=== PATIENT | female | born 1965 | race Caucasian/White ===

== ENCOUNTER 2024-04-19 13:56 | Inpatient (IN) | payer OTHER, SELFPAY ==
[2024-04-19 14:38] LABS: Absolute Basophils 0.1 K/uL (0-0.5); Absolute Eosinophils 0.2 K/uL (0-0.5); Absolute Lymphocytes (CBC) 2.8 K/uL (0.7-4.9); Absolute Monocytes 0.6 K/uL (0.1-1.3); Absolute Neutrophil 4.6 K/uL (1.8-8.0); Basophils % 1.3 % (0-1.3); Eosinophils % 2.2 % (0-4.4); Hematocrit 44.2 % (36.0-45.0); Hemoglobin 14.4 g/dL (12.0-15.0); Lymphocytes % 33.8 % (15.3-44.8); MCH 28.8 pg (27.0-35.0); MCHC 32.6 g/dL (32.0-36.0); MCV 88.1 fL (80-100); MPV 8.8 fL (7.6-11.3); Monocytes % 7.4 % (3.3-12.3); Neutrophils % 55.3 % (41.7-73.7); Platelets 318 thou/uL (152-406); RBC Red Blood Cell Count 5.01 M/uL (3.86-4.86)
[2024-04-19 14:46] LABS: D-Dimer 0.297 FEUug/mL (0-0.500); Protime INR 1.07
--- NOTE | 2024-04-19 14:50 | RAD REPORT ---
EXAM: CT brain without contrast HISTORY: STROKE ALERT COMPARISON: None TECHNIQUE: Multiple contiguous axial images were obtained and a CT of the brain without contrast. Sag ittal and coronal reformats were performed. One or more of the following dose reduction techniques were used: Automated exposure control, adjust ment of the mA and/or kV according to patient size, and/or iterative reconstruction. FINDINGS: No evidence of hydrocephalus, intracranial hemorrhage, or extra-axial fluid collection. The brain is normal in morphology. No evidence of midline shift or areas of brain edema. The calvarium is intact. The visualized paranasal sinuses and mastoid air cells are essentially clear . IMPRESSION: No evidence of acute intracranial abnormality. If there is persistent clinical concern for CVA, MR examination is recommended for further characteri zation. The findings were communicated with Tc Duenas MD at 04/19/2024 2:45 PM by messaging.
--- NOTE | 2024-04-19 14:52 | RAD REPORT ---
EXAMINATION: CTA HEAD CLINICAL INDICATION: SLURRED SPEECH TECHNIQUE: Axial CT images were obtained through the head after intravenous contrast utilizing angio raph protocol with 3D post-processing (maximum intensity projection images, volume rendered images and/or shaded surface rendered images). One or more of the following dose reduction technique s were used: Automated exposure control, adjustment of the mA and/or kV according to patient size, and/or iterative reconstruction. Unless otherwise specified, incidental findings do not require dedic ated imaging follow-up. COMPARISON: No prior exam. FINDINGS: ICA: The petrous, cavernous, and supraclinoid segments of the bilateral internal carotid arteries are normal. The ophthalmic artery origins are visualized and normal. The posterior communicating arteries are patent. RICHA: Anterior cerebral arteries are normal bilaterally. The anterior communicating artery is patent. MCA: Middle cerebral arteries are normal bilaterally. OLD COIN DEALER: Posterior cerebral arteries are normal bilaterally. Vertebrobasilar: The vertebral arteries are patent. The basilar artery is normal in appearance. 3D images confirm these findings. IMPRESSION: No significant flow abnormality is identified.
--- NOTE | 2024-04-19 14:58 | RAD REPORT ---
EXAMINATION: CTA NECK CLINICAL INDICATION: PAIN TECHNIQUE: Axial CT images were obtained from the aortic arch to the skull base after intravenous con trast utilizing angiographic protocol with 3D post-processing (maximum intensity projection images, volume rendered images and/or shaded surface rendered images). One or more of the following dose redu ction techniques were used: Automated exposure control, adjustment of the mA and/or kV according to patient size, and/or iterative reconstruction. Unless otherwise specified, incidental findings do not require dedicated imaging follow-up. COMPARISON: No prior exam. FINDINGS: AORTA: The imaged aortic arch is normal. CCA: The common carotid arteries are patent and normal in caliber. ICA/ECA: There is mild soft plaque present proximal left ICA distal to the bulb resulting in narrowin g estimated at 50-60%. VERTEBRAL: The cervical vertebral arteries are patent. The vertebral arteries are codominant. SOFT TISSUE: No significant neck soft tissue abnormalities. The visualized lung apices are clear. 3D images confirm these findings. IMPRESSION: Mild to moderate narrowing of the post bulbar proximal left ICA caused by soft plaque. NASCET criteria used. Mild 0-49% stenosis Moderate 50-69% stenosis Severe 70-99% stenosis
[2024-04-19] MEDS ORDERED: NA CHLORIDE 0.9% 1,000 ML ONE (15:10)
[2024-04-19] MEDS ORDERED: FOLIC ACID 5 MG/ML VIAL ONE (15:10)
[2024-04-19] MEDS ORDERED: ASPIRIN 81 MG CHEWABLE TABLET ONE (15:27)
[2024-04-19] MEDS ORDERED: ATORVASTATIN 40 MG TAB ONE (15:27)
[2024-04-19] MEDS ORDERED: CLOPIDOGREL 75 MG TABLET ONE (15:27)
--- NOTE | 2024-04-19 15:27 | ER ---
Nurse's Notes [facility] Name: Nu Kurtz Age: 58 yrs Sex: Female : 1965 Arrival Date: 04/19/2024 Time: 13:56 Bed 6 Private MD: Diagnosis: Cerebral infarction, [id number]-4-0 days;Aphasia following cerebral infarction-righjt side wekness;COPD/ Chronic obstructive pulmonary disease, unspecified;Essential (primary) hypertension;Tobacco abuse counseling;Tobacco use;Occlusion and stenosis of left carotid artery-INTERNAL, MODERATE Presentation: 04/19 13:58 Chief complaint: Patient states: Right sided weakness and slurred speech x 2 days. 7 14:01 Coronavirus screen: At this time, the client does not indicate any symptoms associated jl with coronavirus-19. Ebola Screen: No symptoms or risks identified at this time. An acute neurological deficit is present. The charge nurse has been notified. The patient has been moved to a treatment area. Pre-hospital glucose is not applicable to this patient. Initial Sepsis Screen: Does the patient meet any 2 criteria? No. Patient's initial sepsis screen is negative. Does the patient have a suspected source of infection? No. Patient's initial sepsis screen is negative. Risk Assessment: Do you want to hurt yourself or someone else? Patient reports no desire to harm self or others. Onset of symptoms was April 17, 2024. Care prior to arrival: None. 14:01 Method Of Arrival: Wheelchair [facility] 14:01 Acuity: ENMANUEL 3 jl7 Triage Assessment: 13:58 The onset of the patients symptoms was March 31, 2024 at 12:00. General: Appears in jl7 no apparent distress. uncomfortable, unkempt, well developed, Behavior is calm, cooperative. Pain: Denies pain. Neuro: Level of Consciousness is awake, alert, obeys commands, Oriented to person, place, time, situation, Sinter Feeder are weak bilaterally Moves all extremities. Gait is unsteady, reports history of right foot surgery. Reports slurred speech. Cardiovascular: Patient's skin is warm and dry. Respiratory: Airway is patent Respiratory effort is even, unlabored, Respiratory pattern is regular, symmetrical. Derm: Skin is pink, warm \T\ dry. Stroke Activation: Symptom onset > 6 hours Physician: ED Attending; Name: Henrique; Notified At: ; Arrived At: Physician: Mid-Level Provider; Name: ; Notified At: ; Arrived At: Physician: [not used]; Name: ; Notified At: ; Arrived At: Physician: [not used]; Name: ; Notified At: ; Arrived At: Physician: [not used]; Name: ; Notified At: ; Arrived At: Historical: - Allergies: 14:31 No Known Allergies; jl7 - Home Meds: 14:31 None [Active]; jl7 - PMHx: 14:31 None; jl7 - Immunization history:: Adult Immunizations up to date. - Infectious Disease History:: Denies. - Social history:: Smoking status: Patient reports the use of cigarette tobacco products, smokes two packs cigarettes per day. Screenin:58 [facility] ED Fall Risk Assessment (Adult) History of falling in the last 3 months, jl7 including since admission No falls in past 3 months (0 pts) Confusion or Disorientation No (0 pts) Intoxicated or Sedated No (0 pts) Impaired Gait No (0 pts) Mobility Assist Device Used No (0 pt) Altered Elimination No (0 pt) Score/Fall Risk Level 0 - 2 = Low Risk Oriented to surroundings, Maintained a safe environment. Abuse screen: Denies threats or abuse. Denies injuries from another. Nutritional screening: No deficits noted. Tuberculosis screening: No symptoms or risk factors identified. Assessment: 13:58 VAN Scoring: Arm Drift: Patients demonstrates NO arm weakness. Patient is VAN Negative. [facility] [place] Swallow Protocol Exclusion Criteria: Exclusion Criteria Result: Proceed Brief Cognitive Screen What is your name? Normal, Where are you right now? Normal, What year is it? Normal. Oral Mechanism Examination Facial Symmetry: Normal, Motion: Normal, Lip Closure: Normal, Oral Mechanism Result: Normal. 3 oz Water Swallow Challenge: Pt able to drink all water without stopping, coughing, choking or throat clearing: Yes Result: ANDREEA LR Notified: Tc Duenas MD. TNKase (Tenecteplase) Screening: Contraindications: Patient reports onset of signs and symptoms of stroke greater than 6 hours ago: Yes. 13:58 General: See triage. [facility] 15:00 Reassessment: Patient appears in no apparent distress at this time. No changes from jl7 previously documented assessment. Patient and/or family updated on plan of care and expected duration. Pain level reassessed. Patient is alert, oriented x 3, equal unlabored respirations, skin warm/dry/pink. 16:00 Reassessment: Patient appears in no apparent distress at this time. No changes from 7 previously documented assessment. Patient and/or family updated on plan of care and expected duration. Pain level reassessed. Patient is alert, oriented x 3, equal unlabored respirations, skin warm/dry/pink. 17:00 Reassessment: Patient appears in no apparent distress at this time. No changes from 7 previously documented assessment. Patient and/or family updated on plan of care and expected duration. Pain level reassessed. Patient is alert, oriented x 3, equal unlabored respirations, skin warm/dry/pink. 20:18 General: Appears in no apparent distress. comfortable, Behavior is calm, cooperative, mt4 appropriate for age. 20:19 Pain: Denies pain. Neuro: Level of Consciousness is awake, alert, obeys commands, mt4 Oriented to person, place, time, situation, Sinter Feeder are weak on right Weakness Speech is normal, Facial symmetry appears normal. Cardiovascular: Reports Denies chest pain. Respiratory: Airway is patent Respiratory effort is even, unlabored, Respiratory pattern is regular, symmetrical. Vital Signs: 14:01 BP 187 / 98; Pulse 68; Resp 15; Temp 97.9; Pulse Ox 95% ; jl7 17:21 BP 160 / 79; Pulse 73; Resp 15; Pulse Ox 100% ; jl7 18:07 Weight 102.06 kg; Height 5 ft. 5 in. ; jl7 20:11 BP 152 / 62; Pulse 68; Resp 16; Temp 98.4(O); Pulse Ox 99% on R/A; mt4 21:09 BP 140 / 61; Pulse 68; Resp 17; Pulse Ox 98% on R/A; Pain 0/10; mt4 18:07 Body Mass Index 37.44 (102.06 kg, 165.1 cm) 7 21:09 Pain Scale: Adult mt4 [place] Coma Score: 14:20 Eye Response: spontaneous(4). Motor Response: obeys commands(6). Verbal Response: sandro oriented(5). Total: 15. 21:11 Eye Response: spontaneous(4). Motor Response: obeys commands(6). Verbal Response: mt4 oriented(5). Total: 15. NIH Stroke Scale Scores: 13:58 NIHSS Score: 1 jl7 14:20 NIHSS Score: 6 [facility] ED Course: 13:57 Patient arrived in ED. mr 13:58 Tc Duenas MD is Attending Physician. [facility] 13:58 Patient has correct armband on for positive identification. Placed in gown. Bed in low jl7 position. Call light in reach. Side rails up X2. Provided Education on: use of call traore. Client placed on continuous cardiac and pulse oximetry monitoring. NIBP monitoring applied. Warm blanket given. 14:20 Initial lab(s) drawn, by sd, sent to lab. Inserted saline lock: 20 gauge in left jl7 forearm, using aseptic technique. Blood collected. Flushed with 10 mL NS. 14:27 Quyen Guaman, RN is Primary Nurse. jl7 14:31 Triage completed. jl7 14:31 Arm band placed on right wrist. jl7 14:41 CT Stroke Brain w/o Contrast In Process Unspecified. EDMS 14:41 CT Head Angio In Process Unspecified. EDMS 14:41 CT Neck Angio In Process Unspecified. EDMS 15:11 XRAY Chest (1 view) In Process Unspecified. EDMS 15:24 Zachariah Patterson is Hospitalizing Provider. sandro 16:46 No provider procedures requiring assistance completed. Patient admitted, IV remains in jl7 place. intact, No redness/swelling at site. 19:11 Primary Nurse role handed off by Quyen Guaman RN jl7 19:28 GRICEL SALINAS, RN is Primary Nurse. dd2 21:11 No apparent distress. Resting quietly. mt4 21:11 Client placed on continuous cardiac and pulse oximetry monitoring. NIBP monitoring mt4 applied. Lights dimmed. Warm blanket given. Pillow given. Verbal reassurance given. Assisted to bathroom. 21:11 Patient admitted, IV remains in place. Patient maintains SpO2 saturation greater than mt4 95% on room air. Administered Medications: 15:18 Drug: foLIC Acid IVPB 1 mg IVPB once Route: IVPB; Site: left wrist; ss 15:19 Follow up: Response: No adverse reaction; IV Status: Completed infusion jl7 15:19 Drug: NS 0.9% IV 1000 ml IV at 1000 ml once; to be given as a bolus over 60 minutes ss Route: IV; Rate: 1000 ml; Site: left wrist; 16:20 Follow up: Response: No adverse reaction; IV Status: Completed infusion; IV Intake: jl7 1000ml 15:32 Drug: Atorvastatin PO 40 mg PO once Route: PO; bp 17:23 Follow up: Response: No adverse reaction jl7 15:32 Drug: Aspirin PO Chewable Tablet 324 mg PO once; 81 mg tablets x 4 Route: PO; bp 17:23 Follow up: Response: No adverse reaction jl7 15:32 Drug: Clopidogrel PO 75 mg PO once Route: PO; bp 17:23 Follow up: Response: No adverse reaction jl7 15:32 Drug: Famotidine IVP 20 mg IVP once; dilute with 10 mL 0.9% NaCl; give over 2 minutes bp Route: IVP; Site: left hand; 17:23 Follow up: Response: No adverse reaction jl7 Medication: 13:58 VIS not applicable for this client. jl7 Point of Care Testin:58 NA jl7 Ranges: Intake: 16:20 IV: 1000ml; Total: 1000ml. jl7 Outcome: 15:26 Decision to Hospitalize by Provider. sandro 21:11 Admitted to Med/surg mt4 21:11 Admitted to Med/surg accompanied by tech, via stretcher, room 206, 21:11 Condition: stable 21:11 Instructed on the need for admit, 21:14 Patient left the ED. mt4 NIH Stroke Scale - NIH Stroke Score Date: 04/19/2024 Time: 13:58 Total Score = 1 10. Dysarthria (speech clarity - read or repeat words) - 1(Mild to Moderate) 11. Extinction and Inattention (visual/tactile/auditory/spatial/personal) - 0(No abnormality) 1a. Level of Consciousness (LOC) - 0(Alert) 1b. Level of Consciousness (LOC) (Month \T\ Age) - 0(Both) 1c. LOC Commands (Open \T\ Closes Eyes/Trimming Department Blocker) - 0(Both) 2. Best Gaze (Lateral Gaze Paresis) - 0(Normal) 3. Visual Field Loss - 0(No visual loss) 4. Facial Palsy - 0(Normal) 5a. Left Arm: Motor (10-second hold) - 0(No drift) 5b. Right Arm: Motor (10-second hold) - 0(No drift) 6a. Left Leg: Motor (5-second hold - always test supine) - 0(No drift) 6b. Right Leg: Motor (5-second hold - always test supine) - 0(No drift) 7. Limb Ataxia (finger/nose \T\ heel/camacho - test with eyes open) - 0(Absent) 8. Sensory Loss (pinprick arms/legs/face) - 0(Normal) 9. Best Language: Aphasia (description/naming/reading) - 0(No aphasia) Initials: amrit NIH Stroke Scale - NIH Stroke Score Date: 04/19/2024 Time: 14:20 Total Score = 6 10. Dysarthria (speech clarity - read or repeat words) - 1(Mild to Moderate) 11. Extinction and Inattention (visual/tactile/auditory/spatial/personal) - 0(No abnormality) 1a. Level of Consciousness (LOC) - 0(Alert) 1b. Level of Consciousness (LOC) (Month \T\ Age) - 0(Both) 1c. LOC Commands (Open \T\ Closes Eyes/Trimming Department Blocker) - 0(Both) 2. Best Gaze (Lateral Gaze Paresis) - 0(Normal) 3. Visual Field Loss - 0(No visual loss) 4. Facial Palsy - 0(Normal) 5a. Left Arm: Motor (10-second hold) - 0(No drift) 5b. Right Arm: Motor (10-second hold) - 1(Drift) 6a. Left Leg: Motor (5-second hold - always test supine) - 0(No drift) 6b. Right Leg: Motor (5-second hold - always test supine) - 1(Drift) 7. Limb Ataxia (finger/nose \T\ heel/camacho - test with eyes open) - 2(Present in two limbs) 8. Sensory Loss (pinprick arms/legs/face) - 0(Normal) 9. Best Language: Aphasia (description/naming/reading) - 1(Mild to moderate aphasia) Initials: sandro Signatures: Dispatcher [employer] Tc Contreras MD MD cha Rivera, Caitlin, Reg Reg mr MelgarIsatu, RN RN Quyen Polk, TRAM RN jl7 Brett Farias, Ray Bazzi RN, RN TRAM mt4 GRICEL SALINAS RN RN dd2 Corrections: (The following items were deleted from the chart) 14:32 14:31 PSHx: None; jl7 jl7
--- NOTE | 2024-04-19 15:27 | EDPHYS ---
Physician Documentation [facility] Name: Nu Kurtz Age: 58 yrs Sex: Female : 1965 Arrival Date: 04/19/2024 Time: 13:56 Bed 6 Private MD: ED Physician Tc Duenas HPI: 04/19 14:14 This 58 yrs old Female presents to ER via Unassigned with complaints of sandro Slurred Speech. 14:14 The patient presents to the emergency department with weakness of the right upper sandro extremity, right lower extremity, a speech or higher order brain function problem, aphasia, that is moderate. Onset: The symptoms/episode began/occurred 2 day(s) ago. Context: occurred at an unknown location, occurred while the patient was gradual x 2 days. Associated signs and symptoms: Pertinent positives: dizziness. Severity of symptoms: At their worst the symptoms were moderate in the emergency department the symptoms are unchanged. Patient's baseline: Neuro: alert and fully oriented. Current symptoms: dysphasia, paralysis or paresis, of the right arm and right leg, that is mild. The patient has not experienced similar symptoms in the past. Historical: - Allergies: 14:31 No Known Allergies; jl7 - Home Meds: 14:31 None [Active]; jl7 - PMHx: 14:31 None; jl7 - Immunization history:: Adult Immunizations up to date. - Infectious Disease History:: Denies. - Social history:: Smoking status: Patient reports the use of cigarette tobacco products, smokes two packs cigarettes per day. ROS: 14:14 Constitutional: Negative for fever, chills, and weight loss, Eyes: Negative for injury, sandro pain, redness, and discharge, ENT: Negative for injury, pain, and discharge, Neck: Negative for injury, pain, and swelling, Cardiovascular: Negative for chest pain, palpitations, and edema, Abdomen/GI: Negative for abdominal pain, nausea, vomiting, diarrhea, and constipation, Back: Negative for injury and pain, : Negative for injury, bleeding, discharge, and swelling, MS/Extremity: Negative for injury and deformity, Skin: Negative for injury, rash, and discoloration, Psych: Negative for depression, anxiety, suicide ideation, homicidal ideation, and hallucinations, Allergy/Immunology: Negative for hives, rash, and allergies, Endocrine: Negative for neck swelling, polydipsia, polyuria, polyphagia, and marked weight changes, Hematologic/Lymphatic: Negative for swollen nodes, abnormal bleeding, and unusual bruising, 14:14 Respiratory: Positive for cough, "sounds productive", shortness of breath, on exertion. 14:14 Neuro: Positive for dizziness, speech changes, weakness, of the right arm and right leg, Exam: 14:14 Constitutional: This is a well developed, well nourished patient who is awake, alert, sandro and in no acute distress. Head/Face: Normocephalic, atraumatic. Eyes: Pupils equal round and reactive to light, extra-ocular motions intact. Lids and lashes normal. Conjunctiva and sclera are non-icteric and not injected. Cornea within normal limits. Periorbital areas with no swelling, redness, or edema. ENT: Nares patent. No nasal discharge, no septal abnormalities noted. Tympanic membranes are normal and external auditory canals are clear. Oropharynx with no redness, swelling, or masses, exudates, or evidence of obstruction, uvula midline. Mucous membranes moist. Neck: Trachea midline, no thyromegaly or masses palpated, and no cervical lymphadenopathy. Supple, full range of motion without nuchal rigidity, or vertebral point tenderness. No Meningismus. Chest/axilla: Normal chest wall appearance and motion. Nontender with no deformity. No lesions are appreciated. Cardiovascular: Regular rate and rhythm with a normal S1 and S2. No gallops, murmurs, or rubs. Normal PMI, no JVD. No pulse deficits. Abdomen/GI: Soft, non-tender, with normal bowel sounds. No distension or tympany. No guarding or rebound. No evidence of tenderness throughout. Back: No spinal tenderness. No costovertebral tenderness. Full range of motion. Female : Normal external genitalia. Skin: Warm, dry with normal turgor. Normal color with no rashes, no lesions, and no evidence of cellulitis. Psych: Awake, alert, with orientation to person, place and time. Behavior, mood, and affect are within normal limits. 14:14 Respiratory: the patient does not display signs of respiratory distress, Respirations: normal, no acute changes, is not noted, Breath sounds: bronchial sounds, that are mild, are scattered, decreased breath sounds, that are mild, are located in both bases, rhonchi, that are mild, are scattered, stridor, that is mild, + upper airway congestion. wheezing: inspiratory expiratory 14:14 Musculoskeletal/extremity: ROM: limited active range of motion, in the right arm and right leg, Circulation is intact in all extremities. Sensation intact. Compartment Syndrome exam of affected extremity: is normal. Weight bearing: able to fully bear weight, DVT Exam: No signs of deep vein thrombosis. no pain, no swelling, no tenderness, negative Homans' sign noted on exam, no appreciated bluish discoloration, no erythema, no increased warmth, 15:37 ECG was reviewed by the Attending Physician. [facility] Vital Signs: 14:01 BP 187 / 98; Pulse 68; Resp 15; Temp 97.9; Pulse Ox 95% ; 7 17:21 BP 160 / 79; Pulse 73; Resp 15; Pulse Ox 100% ; 7 18:07 Weight 102.06 kg; Height 5 ft. 5 in. ; 7 20:11 BP 152 / 62; Pulse 68; Resp 16; Temp 98.4(O); Pulse Ox 99% on R/A; mt4 21:09 BP 140 / 61; Pulse 68; Resp 17; Pulse Ox 98% on R/A; Pain 0/10; mt4 18:07 Body Mass Index 37.44 (102.06 kg, 165.1 cm) 7 21:09 Pain Scale: Adult mt4 NIH Stroke Scale Scores: 13:58 NIHSS Score: 1 jl7 14:20 NIHSS Score: 6 [facility] [place] Coma Score: 14:20 Eye Response: spontaneous(4). Motor Response: obeys commands(6). Verbal Response: [facility] oriented(5). Total: 15. 21:11 Eye Response: spontaneous(4). Motor Response: obeys commands(6). Verbal Response: mt4 oriented(5). Total: 15. MDM: 13:58 Medical Screening Exam initiated [facility] 14:22 Data reviewed: vital signs, nurses notes, lab test result(s), EKG, radiologic studies, [facility] CT scan, plain films. Consideration of Admission/Observation Patient was admitted/placed on observation. Escalation of care including admission/observation considered. I considered the following discharge prescriptions or medication management in the emergency department Medications were administered in the Emergency Department. See MAR. Independent interpretation of the following test(s) in the Emergency Department EKG: See my EKG interpretation above. Test considered but Not performed: MRI: no mri available. 04/19 14:00 Order name: Basic Metabolic Panel; Complete Time: 17:26 [facility] 04/19 14:00 Order name: CBC with Diff; Complete Time: 15:17 [facility] 04/19 14:00 Order name: D-Dimer; Complete Time: 15:17 [facility] 04/19 14:00 Order name: LFT's; Complete Time: 17:26 [facility] 04/19 14:00 Order name: NT PRO-BNP; Complete Time: 17:26 [facility] 04/19 14:00 Order name: PT-INR; Complete Time: 15:17 [facility] 04/19 14:00 Order name: Troponin HS; Complete Time: 17:26 [facility] 04/19 14:01 Order name: Urinalysis w/ reflexes [facility] 04/19 15:18 Order name: Lipid Profile [facility] 04/19 16:35 Order name: RPR EDMS 04/19 16:35 Order name: Urine Drug Screen EDVT 04/19 16:35 Order name: Vitamin B12 Level EDMS 04/19 16:35 Order name: Vitamin D, 25 (OH), TOTAL EDVT 04/19 16:35 Order name: Basic Metabolic Panel EDMS 04/19 16:35 Order name: Basic Metabolic Panel EDMS 04/19 16:35 Order name: Basic Metabolic Panel EDMS 04/19 16:35 Order name: Basic Metabolic Panel EDMS 04/19 16:35 Order name: Basic Metabolic Panel EDMS 04/19 16:35 Order name: Basic Metabolic Panel EDMS 04/19 16:35 Order name: CBC with Automated Diff EDMS 04/19 16:35 Order name: CBC with Automated Diff EDMS 04/19 16:35 Order name: CBC with Automated Diff EDMS 04/19 16:35 Order name: CBC with Automated Diff EDMS 04/19 16:35 Order name: CBC with Automated Diff EDMS 04/19 16:35 Order name: CBC with Automated Diff EDMS 04/19 16:35 Order name: Magnesium EDMS 04/19 16:35 Order name: Magnesium EDMS 04/19 16:35 Order name: Magnesium EDMS 04/19 16:35 Order name: Magnesium EDMS 04/19 16:35 Order name: Magnesium EDMS 04/19 16:35 Order name: Magnesium EDMS 04/19 16:35 Order name: Phosphorus EDMS 04/19 16:35 Order name: Phosphorus EDMS 04/19 16:35 Order name: Phosphorus EDMS 04/19 16:35 Order name: Phosphorus EDMS 04/19 16:35 Order name: Phosphorus EDMS 04/19 16:35 Order name: Phosphorus EDMS 04/19 16:35 Order name: T4,Total EDMS 04/19 16:35 Order name: T4,Total EDMS 04/19 16:35 Order name: Thyroid Stimulating Hormone EDMS 04/19 16:35 Order name: Thyroid Stimulating Hormone EDMS 04/19 16:35 Order name: Anti-Thrombin III Activity EDMS 04/19 16:35 Order name: C-ANCA Anti-Proteinase 3 EDMS 04/19 16:35 Order name: Cardiolipin Antibodies G,M EDMS 04/19 16:35 Order name: Factor V Leiden Mutation EDMS 04/19 16:35 Order name: Homocysteine EDMS 04/19 16:35 Order name: Miscellaneous Test Lab EDMS 04/19 16:35 Order name: P-ANCA Anti-Myeloperoxidase Ab EDMS 04/19 16:35 Order name: Protein C Antigen EDMS 04/19 16:35 Order name: Protein S (Total EDMS 04/19 16:35 Order name: PROTHROMBIN GENE ANALYSIS (F2) EDMS 04/19 16:35 Order name: Protein Electo w/M Rg Serum EDMS 04/19 14:00 Order name: XRAY Chest (1 view); Complete Time: 17:26 [facility] 04/19 14:00 Order name: CT Stroke Brain w/o Contrast; Complete Time: 15:17 [facility] 04/19 14:01 Order name: CT Head Angio; Complete Time: 15:17 [facility] 04/19 14:01 Order name: CT Neck Angio; Complete Time: 15:17 [facility] 04/19 16:35 Order name: Echo with Doppler EDMS 04/19 16:35 Order name: Stroke Protocol EDMS 04/19 14:00 Order name: EKG; Complete Time: 14:01 [facility] 04/19 16:35 Order name: Physical Therapy Consult EDMS 04/19 16:35 Order name: Speech Therapy Consult EDMS 04/19 14:00 Order name: Cardiac monitoring; Complete Time: 14:34 [facility] 04/19 14:00 Order name: EKG - Nurse/Tech; Complete Time: 15:22 [facility] 04/19 14:00 Order name: IV Saline Lock; Complete Time: 14:34 [facility] 04/19 14:00 Order name: Labs collected and sent; Complete Time: 14:34 [facility] 04/19 14:00 Order name: O2 Per Protocol; Complete Time: 14:34 [facility] 04/19 14:00 Order name: O2 Sat Monitoring; Complete Time: 14:34 [facility] EC:37 Rate is 61 beats/min. Rhythm is regular. QRS Britt is Normal. VT interval is normal. QRS sandro interval is normal. QT interval is normal. No Q waves. T waves are Normal. No ST changes noted. Clinical impression: Normal ECG and No evidence of ischemia. Interpreted by me. Reviewed by me. Administered Medications: 15:18 Drug: foLIC Acid IVPB 1 mg IVPB once Route: IVPB; Site: left wrist; ss 15:19 Follow up: Response: No adverse reaction; IV Status: Completed infusion jl7 15:19 Drug: NS 0.9% IV 1000 ml IV at 1000 ml once; to be given as a bolus over 60 minutes ss Route: IV; Rate: 1000 ml; Site: left wrist; 16:20 Follow up: Response: No adverse reaction; IV Status: Completed infusion; IV Intake: jl7 1000ml 15:32 Drug: Atorvastatin PO 40 mg PO once Route: PO; bp 17:23 Follow up: Response: No adverse reaction jl7 15:32 Drug: Aspirin PO Chewable Tablet 324 mg PO once; 81 mg tablets x 4 Route: PO; bp 17:23 Follow up: Response: No adverse reaction jl7 15:32 Drug: Clopidogrel PO 75 mg PO once Route: PO; bp 17:23 Follow up: Response: No adverse reaction jl7 15:32 Drug: Famotidine IVP 20 mg IVP once; dilute with 10 mL 0.9% NaCl; give over 2 minutes bp Route: IVP; Site: left hand; 17:23 Follow up: Response: No adverse reaction jl7 Point of Care Testin:58 NA jl7 Ranges: Critical Glucose Levels:Adult <50 mg/dl or >400 mg/dl <40 mg/dl or >180 mg/dl Disposition Summary: 04/19/24 15:26 Hospitalization Ordered Notes: Hospitalization Status: Inpatient Admission sandro Provider: Zachariah Patterson cha Condition: Fair sandro Problem: new sandro Symptoms: have improved sandro Bed/Room Type: Standard sandro Location: Telemetry/MedSurg (Inpatient)(04/19/24 19:24) vk Room Assignment: 209(04/19/24 19:25) vk Diagnosis - Cerebral infarction, unspecified - 2-3 days sandro - Aphasia following cerebral infarction - righjt side wekness sandro - COPD/ Chronic obstructive pulmonary disease, unspecified sandro - Essential (primary) hypertension sandro - Tobacco abuse counseling sandro - Tobacco use sandro - Occlusion and stenosis of left carotid artery - INTERNAL, MODERATE sandro Forms: - Medication Reconciliation Form sandro - SBAR form sandro - Leadership Thank You Letter sandro NIH Stroke Scale - NIH Stroke Score Date: 04/19/2024 Time: 13:58 Total Score = 1 10. Dysarthria (speech clarity - read or repeat words) - 1(Mild to Moderate) 11. Extinction and Inattention (visual/tactile/auditory/spatial/personal) - 0(No abnormality) 1a. Level of Consciousness (LOC) - 0(Alert) 1b. Level of Consciousness (LOC) (Month \\T\\ Age) - 0(Both) 1c. LOC Commands (Open \\T\\ Closes Eyes/Christmas Tree Grader) - 0(Both) 2. Best Gaze (Lateral Gaze Paresis) - 0(Normal) 3. Visual Field Loss - 0(No visual loss) 4. Facial Palsy - 0(Normal) 5a. Left Arm: Motor (10-second hold) - 0(No drift) 5b. Right Arm: Motor (10-second hold) - 0(No drift) 6a. Left Leg: Motor (5-second hold - always test supine) - 0(No drift) 6b. Right Leg: Motor (5-second hold - always test supine) - 0(No drift) 7. Limb Ataxia (finger/nose \\T\\ heel/camacho - test with eyes open) - 0(Absent) 8. Sensory Loss (pinprick arms/legs/face) - 0(Normal) 9. Best Language: Aphasia (description/naming/reading) - 0(No aphasia) Initials: jl7 NIH Stroke Scale - NIH Stroke Score Date: 04/19/2024 Time: 14:20 Total Score = 6 10. Dysarthria (speech clarity - read or repeat words) - 1(Mild to Moderate) 11. Extinction and Inattention (visual/tactile/auditory/spatial/personal) - 0(No abnormality) 1a. Level of Consciousness (LOC) - 0(Alert) 1b. Level of Consciousness (LOC) (Month \\T\\ Age) - 0(Both) 1c. LOC Commands (Open \\T\\ Closes Eyes/Christmas Tree Grader) - 0(Both) 2. Best Gaze (Lateral Gaze Paresis) - 0(Normal) 3. Visual Field Loss - 0(No visual loss) 4. Facial Palsy - 0(Normal) 5a. Left Arm: Motor (10-second hold) - 0(No drift) 5b. Right Arm: Motor (10-second hold) - 1(Drift) 6a. Left Leg: Motor (5-second hold - always test supine) - 0(No drift) 6b. Right Leg: Motor (5-second hold - always test supine) - 1(Drift) 7. Limb Ataxia (finger/nose \\T\\ heel/camacho - test with eyes open) - 2(Present in two limbs) 8. Sensory Loss (pinprick arms/legs/face) - 0(Normal) 9. Best Language: Aphasia (description/naming/reading) - 1(Mild to moderate aphasia) Initials: sandro Signatures: Dispatcher [employer] EDMS Tc Duenas MD MD cha Blanchard, Shelby, RN RN Quyen Polk RN RN jlBrett Fraga, RN RN Shelli Mendoza Corrections: (The following items were deleted from the chart) 14: 14:01 BASIC METABOLIC PANEL+C.LAB.BRZ ordered. EDMS EDMS 14: 14:01 CBC+H.LAB.BRZ ordered. EDMS EDMS 14: 14:01 D-DIMER+COAG.LAB.BRZ ordered. EDMS EDMS 14: 14:01 HEPATIC FUNCTION+C.LAB.BRZ ordered. EDMS EDMS 14:01 14:01 PROBNP+C.LAB.BRZ ordered. EDMS EDMS 14: 14:01 PROTIME (+INR)+COAG.LAB.BRZ ordered. EDMS EDMS 14: 14:01 Troponin High Sensitivity+C.LAB.BRZ ordered. EDMS EDMS 14: 14:01 Urinalysis+U.LAB.BRZ ordered. EDMS EDMS 14:01 14:01 Head Angio+CT.RAD.BRZ ordered. EDMS EDMS 14:01 14:01 Neck Angio+CT.RAD.BRZ ordered. EDMS EDMS 14:32 14:31 PSHx: None; amrit jl 18:32 15:26 Telemetry/MedSurg (Inpatient) sandro jl7 18:32 15:26 sandro jl7 19:24 18:32 [facility] ER HOLD [facility] vk 19:24 18:32 ERHOLD- [facility] vk 19:25 19:24 206 vk vk
[2024-04-19] MEDS ORDERED: FAMOTIDINE 20 MG/2 ML VIAL IV ONE (15:28)
--- NOTE | 2024-04-19 15:29 | RAD REPORT ---
EXAMINATION: ONE VIEW CHEST XR CLINICAL INDICATION: COUGH TECHNIQUE: Frontal chest projection is submitted. Examination is limited by patient positioning and t echnique. COMPARISON: No prior exam. FINDINGS: The lungs are diffusely emphysematous but grossly clear. The heart is upper limit of normal in size. No displaced fractures identified. IMPRESSION: No acute intrathoracic abnormalities.
[2024-04-19 15:44] LABS: ALT/SGPT 20 U/L (13-56); Albumin 3.2 g/dL (3.4-5.0); Albumin/Globulin Ratio 0.9 (1.1-1.8); Alkaline Phosphatase 80 U/L (45-117); BUN Blood Urea Nitrogen 16 mg/dL (7-18); Bicarbonate 28 mEq/L (21-32); Bilirubin Total 0.7 mg/dL (0.2-1.0); Globulin 3.4 g/dL (2.3-3.5); Glomerular Filtration Rate 104 ml/min (=/>90); Glucose Level 97 mg/dL (74-106); NT PRO-BNP 50 pg/mL (<125); Protein, Total 6.6 g/dL (6.4-8.2); Sodium Level 138 mEq/L (136-145); Troponin High Sensitivity 4.3 pg/mL (<58.9)
--- NOTE | 2024-04-19 15:45 | P.HP ---
Certification for Inpatient Patient admitted to: Observation With expected LOS: <2 Midnights Patient will require the following post-hospital care: None Practitioner: I am a practitioner with admitting privileges, knowledge of patient current condition, hospital course, and medical plan of care. Services: Services provided to patient in accordance with Admission requirements found in Title 42 Section 412.3 of the Code of Federal Regulations Patient History Date of Service: 04/19/24 Reason for admission: CVA r/o History of Present Illness: Lizzy Kurtz is a 58-year-old female with past medical history of COPD, hypertension, tobacco abuse who presents to the ED with aphasia and right-sided weakness x 2 days. Friend at the bedside reports that she has been struggling to speak clearly for 2 days, then noticed her orientation and hand I coordination were intermittently delayed. He reported she showed signs of panic attack and crying when she realized her own difficulties. Of note, they had recently retired and are on a trip from [place]. They had just bought a camper and are unsure if there is mold under the benton, but concerned the camper is causing her condition. She has not seen a doctor for a few years. Laboratory evaluation insignificant. CTA neck reports "Mild to moderate narrowing of the post bulbar proximal left ICA caused by soft plaque." CTA head reports "No significant flow abnormality is identified." CT head reports " No evidence of acute intracranial abnormality." Chest xray reports "The lungs are diffusely emphysematous but grossly clear. The heart is upper limit of normal in size. No displaced fractures identified." Lizzy will be admitted to hospitalist service for further evaluation and treatment of aphasia with right sided weakness. - Past Medical/Surgical History -: Asthma -: CAD with stent -: Coronary artery stent - Family History Brother -: Stroke - Social History Smoking Status: Current every day smoker (one pack daily) Alcohol use: Yes CD- Drugs: No Review of Systems Neurological: Weakness (right sided), Change in Speech Physical Examination - Physical Exam General: Alert, In no apparent distress, Oriented x3 HEENT: Atraumatic, Normocephalic, Mucous membr. moist/pink Neck: Supple, 2+ carotid pulse no bruit Respiratory: Normal air movement, Crackles/rales Cardiovascular: No edema, Regular rate/rhythm, Normal S1 S2 Capillary refill: <2 Seconds Gastrointestinal: Normal bowel sounds, Soft and benign, No tenderness Musculoskeletal: No clubbing Integumentary: No rashes Neurological: Normal tone, Abnormal speech (aphasia) - Studies Laboratory Data (last 24 hrs) 04/19/24 04/19/24 14:23 14:23 WBC 8.20 Hgb 14.4 Hct 44.2 Plt Count 318 PT 12.0 INR 1.07 Assessment and Plan - Plan Assessment and Plan CVA r/o Aphasia with right sided weakness - Consulted Neurology - recommendations appreciated - Admit under observation status - NIHSS 1 for aphasia - continuous telemetry - Allow permissive hypertension for tonight - q4hr neurochecks - CTA neck reports "Mild to moderate narrowing of the post bulbar proximal left ICA caused by soft plaque." - CTA head reports "No significant flow abnormality is identified." - CT head reports " No evidence of acute intracranial abnormality." - Ordered TTE - Ordered MRI brain - [employer]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
[2024-04-19 15:46] LABS: AST/SGOT < 10 U/L (15-37); Bilirubin Direct < 0.2 mg/dL (0-0.2); Bilirubin Indirect, Calculated 0.5 mg/dL (0.2-0.8)
[2024-04-19] MEDS ORDERED: ACETAMINOPHEN 500 MG TAB PO PRN (16:27)
[2024-04-19 18:27] VITALS: BMI 37.4
[2024-04-19] MEDS: NA CHLORIDE 0.9% 1,000 ML IV SCH (21:29)
[2024-04-19] MEDS: METOPROLOL TAR 25 MG TAB PO ONE (21:57)
[2024-04-20] MEDS: IPRATROPIUM BROM 0.5MG/2.5ML NEB SCH (00:44)
[2024-04-20] MEDS: ALBUTEROL 2.5 MG/3 ML NEB SOL NEB SCH (00:44)
[2024-04-20 02:47] LABS: RPR (Rapid Plasma Reagin) NON-REACT (NON-REACT)
[2024-04-20 03:46] VITALS: O2SAT 97
[2024-04-20 04:04] LABS: Barbiturates NEGATIVE (NEGATIVE); Benzodiazepines NEGATIVE (NEGATIVE); Cocaine NEGATIVE (NEGATIVE); METHAMPHETAM POSITIVE (NEGATIVE); Methadone NEGATIVE (NEGATIVE); Opiates NEGATIVE (NEGATIVE); Phencyclidine NEGATIVE (NEGATIVE); THC Cannibis NEGATIVE (NEGATIVE)
[2024-04-20 04:41] LABS: Urine Bilirubin NEGATIVE (Negative); Urine Blood Negative (Negative); Urine Clarity Clear (Clear); Urine Color Light-Yellow (Yellow); Urine Glucose NEGATIVE (Negative); Urine Ketones NEGATIVE (Negative); Urine Microscopic Reflex YN NO UMIC; Urine Nitrite NEGATIVE (Negative); Urine Protein NEGATIVE (Negative); Urine Urobilinogen 1+ (Normal); Urine pH 6.5 (5.0-7.0)
[2024-04-20 04:56] LABS: Absolute Basophils 0.1 K/uL (0-0.5); Absolute Eosinophils 0.3 K/uL (0-0.5); Absolute Lymphocytes (CBC) 3.2 K/uL (0.7-4.9); Absolute Monocytes 0.6 K/uL (0.1-1.3); Basophils % 0.6 % (0-1.3); Eosinophils % 2.8 % (0-4.4); Hematocrit 40.6 % (36.0-45.0); Hemoglobin 13.9 g/dL (12.0-15.0); Lymphocytes % 35.2 % (15.3-44.8); MCHC 34.3 g/dL (32.0-36.0); MCV 87.3 fL (80-100); MPV 8.5 fL (7.6-11.3); Monocytes % 6.5 % (3.3-12.3); Neutrophils % 54.9 % (41.7-73.7); Nucleated Red Blood Cells % 0.2 % (0-0); Platelets 295 thou/uL (152-406); RBC Red Blood Cell Count 4.65 M/uL (3.86-4.86); Red Cell Distribution Width 14.1 % (12.1-15.2)
[2024-04-20 05:16] LABS: Anion Gap 7.8 mEq/L (5.0-15.0); Magnesium 1.9 mg/dL (1.6-2.4); Phosphorus 2.7 mg/dL (2.5-4.9); Potassium 3.8 mEq/L (3.5-5.1); T4,Total 7.4 ug/dL (4.8-13.9); Thyroid Stimulating Hormone 0.601 uIU/mL (0.358-3.740)
[2024-04-20] MEDS: METOPROLOL TAR 25 MG TAB PO SCH (05:47)
[2024-04-20] MEDS ORDERED: FLU (Fluarix Triv) TS24-25(6MOS UP)/PF 45 MCG/0.5 ML Syringe IM ONE (07:15)
--- NOTE | 2024-04-20 08:59 | RAD REPORT ---
EXAMINATION: MRI BRAIN WITHOUT CONTRAST CLINICAL INDICATION: CVA TECHNIQUE: Multiplanar multisequence MR images of the brain were obtained without intravenous contras t. Unless otherwise specified, incidental findings do not require dedicated imaging follow-up. COMPARISON: April 19, [address] FINDINGS: Mild to moderate abnormal signal within periventricular, deep and subcortical white matter probably i schemic changes secondary to small vessel disease. Diffusion weighted/ADC mapping demonstrates a 1.4 cm area of abnormal signal within the left aspect o f the dana. This is compatible with acute infarction. Ventricles are normal caliber. No extra-axial fluid collection. Mild sinusitis. IMPRESSION: 1.4 cm acute infarction left aspect of the dana
[2024-04-20] MEDS ORDERED: HYDROCODONE/APAP 7.5/325 MG TAB PO PRN (09:12)
[2024-04-20] MEDS: ENOXAPARIN 40 MG/0.4 ML SQ SCH (09:47)
[2024-04-20] MEDS: FOLIC ACID 1 MG TABLET PO SCH (09:47)
[2024-04-20] MEDS: ASPIRIN EC 81 MG TAB PO SCH (09:47)
[2024-04-20] MEDS: CLOPIDOGREL 75 MG TABLET PO SCH (09:47)
[2024-04-20] MEDS: POTASSIUM 25 MEQ EFFERV TAB PO ONE (09:48)
--- NOTE | 2024-04-20 13:13 | ECHO ---
HEIGHT: 5 ft 5 in WEIGHT: 225 lb 0 oz DATE OF STUDY: 04/20/[address]: Griselda Mullins NP 2-DIMENSIONAL: YES M.MODE: YES DOPPLER: YES COLOR FLOW: YES TDS: NO PORTABLE: YES DEFINITY: NO BUBBLE STUDY: NO DIAGNOSIS: STROKE CARDIAC HISTORY: CATHERIZATION: NO SURGERY: NO PROSTHETIC VALVE: NO PACEMAKER: NO MEASUREMENTS (cm) DIASTOLIC (NORMALS) SYSTOLIC (NORMALS) IVSd 1.4 (0.6-1.2) LA Diam 2.8 (1.9-4.0) LVEF 50% LVIDd 4.0 (3.5-5.7) LVIDs 3.0 (2.0-3.5) %FS 25% LVPWd 1.3 (0.6-1.2) Ao Diam 2.7 (2.0-3.7) 2 DIMENSIONAL ASSESSMENT: RIGHT ATRIUM: NORMAL LEFT ATRIUM: NORMAL RIGHT VENTRICLE: NORMAL LEFT VENTRICLE: NORMAL TRICUSPID VALVE: TRACE OF TRICUSPID REGURGITATION MITRAL VALVE: TRACE OF MITRAL REGURGITATION PULMONIC VALVE: NORMAL AORTIC VALVE: NORMAL PERICARDIAL EFFUSION: NONE AORTIC ROOT: NORMAL LEFT VENTRICULAR WALL MOTION: NORMAL. DOPPLER/COLOR FLOW: NORMAL. COMMENTS: 1. NORMAL LEFT VENTRICULAR SYSTOLIC FUNCTION, EJECTION FRACTION 55%, NORMAL WALL MOTION. 2. NORMAL DIASTOLIC FUNCTION. TECHNOLOGIST: HUGH RODGERS
--- NOTE | 2024-04-20 18:52 | P.PN ---
Date of Service: 04/20/24 Subjective NAD, awake Ambulates with delay to right side continues with slurred speech Speech therapy to evaluate cognition tomorrow 04/21 ROS 10 point ROS as noted above, otherwise negative Physical Exam General: Alert and Oriented x3, NAD HEENT: Atraumatic, Normocephalic, Mucous membr. moist/pink Neck: Supple, 2+ carotid pulse no bruit Respiratory: Normal air movement, Crackles/rales, on RA Cardiovascular: No edema, NSR, Normal S1 S2 Capillary refill: <2 Seconds Gastrointestinal: Normal bowel sounds, Soft on palpation, No tenderness Musculoskeletal: No clubbing Integumentary: No rashes Neurological: Normal tone, Abnormal speech (aphasia) Vitals Reviewed Problem list Acute CVA Aphasia with right sided weakness CAD with stent Asthma Smoking abuse Assessment and Plan Acute CVA Aphasia with right sided weakness - Consulted Neurology - recommendations appreciated - Admit under observation status - NIHSS 1 - continuous telemetry - Allow permissive hypertension for tonight - q4hr neurochecks - CTA neck reports "Mild to moderate narrowing of the post bulbar proximal left ICA caused by soft plaque." - CTA head reports "No significant flow abnormality is identified." - CT head reports " No evidence of acute intracranial abnormality." - TTE reports "EF 50%, trace tricuspid regurgitation" - MRI brain reports "1.4 cm acute infarction left aspect of the dana" - 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
[2024-04-20] MEDS: ATORVASTATIN 20 MG TAB PO SCH (20:33)
[2024-04-20] MEDS: LORAZEPAM 0.5 MG TABLET PO ONE (20:33)
--- NOTE | 2024-04-20 21:06 | CON ---
Date of Consultation: 04/20/2024 Reason For Consultation: Stroke. History Of Present Illness: Ms. Kurtz is a 58-year-old patient with COPD, chronic tobacco abuse and methamphetamine use, hypertension, who came to [facility] on the 19 of April w ith 2 days' worth of right-sided weakness and dysarthria. Her boyfriend noted that she was strugglin g to speak for at least 2 days and the right side which is a dominant side had weakness and incoordin ation. He thought she had signs of panic attack crying and did not immediately seek medical attentio n. They had recently retired and were on the trip from [place] moving through and they were in a camper and thought that there was possibly mold involved and worried that the camper was causing her condit ion. She had not previously seen a physician for over a few years. At [facility], her init ial evaluation included head CT scan which was negative for any acute ischemic hemorrhagic change. H owever, MRI of her brain done on 04/20/2024 identified a 1.4 cm acute infarct in the left aspect of t he dana which explains the patient's presentation of right-sided weakness and some slurred speech. E chocardiogram showed ejection fraction 50% with a normal study. CT angiogram of her neck showed mild -to-moderate narrowing of the post bulbar proximal left ICA with soft plaque present. Head CT angiog mami showed no significant abnormalities. Laboratory Studies did show normal complete blood count wit h differential, she has stroke and young blood work pending with electrolytes being essentially unrem arkable. Kidney function normal. Creatinine 1.64. Hemoglobin A1c of 5.5. Her LDL level was 118, H DL 41, cholesterol to HDL ratio 4.56. Her vitamin D level is very low at 14.1 and she is now on anahi min D replacement. Homocysteine and thyroid function are pending. B12 level of 351. Phosphorus, ca lcium, magnesium unremarkable. Her urine tox screen was positive for amphetamines. RPR nonreactive. She is currently on aspirin 81 mg daily, Plavix 75 mg daily, Lipitor 40 mg at bedtime, Lovenox 40 mg subcutaneously daily, folic acid 1 mg daily. She has normal saline, receiving 75 cc an hour. [place] and Tylenol for pain, albuterol nebulizer for shortness of breath. Allergies: NO KNOWN DRUG ALLERGIES. Laboratory Studies: As noted. Family History: Noncontributory. Social History: Admits at least 2 packs cigarettes daily and does use amphetamine and occasional alc ohol. Review of Systems: Right face, arm, and leg weakness, incoordination, difficulty with articulation, and some mild diffic ulty with swallowing. However, it is noted that the patient did clean her lunch plate and drink alre gayathri prior to full evaluation by speech therapy. Subsequently, she was seen by speech therapist who r ecommended the patient continue with speech therapy to help her return towards her prior level of spe ech functioning. Physical Examination: Vital Signs: Blood pressure 181/89, pulse 55, respiratory rate 16, temperature 97.5, oxygen saturati on 99%. Weight 225 pounds, height 5 feet 5 inches, BMI 37.4. General: Ms. Kurtz is resting comfortably in her hospital bed. HEENT: She appears normocephalic, atraumatic. Sclerae anicteric. Oropharynx pink and moist. Neck: Supple. Chest: Clear. Heart: Regular. Extremities: No significant clubbing, cyanosis, or edema noted. Neurological: Cranial nerves, very subtle decreased right nasolabial fold not really obvious, good e xcursions on smiling. Right upper extremity; she has at least 4/5 strength with some incoordination, , moves right lower extremity, again similar 3/5 to 4/5 proximally and distally. Mild dec reased light, touch, and temperature, right compared to left side. Coordination slow, but intact in both upper and lower extremities. Reflexes are symmetrically depressed. Assessment: Ms. Kurtz is a 58-year-old patient with pontine stroke, possibly related to hypertension and lipohyalinosis along with some elevated cholesterol and chronic cigarette smoking and amphetamin e use. She has a stroke in the young, workup pending. Plan: Continue with aspirin, Plavix, folic acid, statin, and current mild permissive hypertension fo r next week and then mobilize to the 120s or even lower. Continue dyslipidemia management. Target L DL to be less than 70 with high-dose statin and of course the aspirin and Plavix as noted. Dual anti platelet therapy. She may benefit from aggressive physical therapy. It is noted that the patient palmer s been traveling through with [facility] after intermediate and will not necessarily remain in [place], but w here she ends up, therapy will be very helpful. There is a possibility that she wanted to drive the camper. However, given her recent stroke, it is recommended that she does not drive. She requires a ggressive therapy to return towards her ability to use arms and legs with good coordination such that she can drive. She should have a course to reassess her capacity to safely operate a motor vehicle before returning behind the wheel. Otherwise, she may be discharged again with aggressive therapy, f ollowup, and medications and follow up with a neurologist when she arrives her destination. KAREN/VIKI Voice ID: [id number] Report ID: [id number]
[2024-04-21 06:26] LABS: Absolute Basophils 0.1 K/uL (0-0.5); Absolute Eosinophils 0.3 K/uL (0-0.5); Absolute Lymphocytes (CBC) 2.7 K/uL (0.7-4.9); Absolute Monocytes 0.5 K/uL (0.1-1.3); Absolute Neutrophil 5.4 K/uL (1.8-8.0); Basophils % 0.9 % (0-1.3); Eosinophils % 2.9 % (0-4.4); Hematocrit 43.8 % (36.0-45.0); Hemoglobin 14.4 g/dL (12.0-15.0); Lymphocytes % 29.9 % (15.3-44.8); MCV 87.8 fL (80-100); MPV 8.7 fL (7.6-11.3); Monocytes % 5.9 % (3.3-12.3); Neutrophils % 60.4 % (41.7-73.7); Platelets 293 thou/uL (152-406); RBC Red Blood Cell Count 4.99 M/uL (3.86-4.86); Red Cell Distribution Width 13.8 % (12.1-15.2)
[2024-04-21 06:36] LABS: Anion Gap 6.2 mEq/L (5.0-15.0); Phosphorus 3.6 mg/dL (2.5-4.9); Potassium 4.2 mEq/L (3.5-5.1)
--- NOTE | 2024-04-21 10:34 | P.DS ---
Admission Date: 04/20/24 Discharge Date: 04/21/24 Disposition: ROUTINE DISCHARGE Discharge Condition: FAIR Reason for Admission: CVA r/o Brief History of Present Illness: Diagnosis Acute CVA 1.4 cm acute infarction left aspect of the dana Aphasia with right sided weakness CAD with stent Asthma Smoking abuse HPI 04/19/2024 Lizzy Kurtz is a 58-year-old female with past medical history of COPD, hypertension, tobacco abuse who presents to the ED with aphasia and right-sided weakness x 2 days. Friend at the bedside reports that she has been struggling to speak clearly for 2 days, then noticed her orientation and hand/eye coordination were intermittently delayed. He reported she showed signs of panic attack and crying when she realized her own difficulties. Of note, they had recently retired and are on a trip from [place]. They had just bought a camper and are unsure if there is mold under the benton, but concerned the camper is causing her condition. She has not seen a doctor for a few years. Laboratory evaluation insignificant. CTA neck reports "Mild to moderate narrowing of the post bulbar proximal left ICA caused by soft plaque." CTA head reports "No significant flow abnormality is identified." CT head reports " No evidence of acute intracranial abnormality." Chest xray reports "The lungs are diffusely emphysematous but grossly clear. The heart is upper limit of normal in size. No displaced fractures identified." Lizzy will be admitted to hospitalist service for further evaluation and treatment of aphasia with right sided weakness. Hospital Course: Nu Kurtz is a pleasant 58 year old female with a past medical history significant for COPD, hypertension, tobacco abuse who was admitted to the [facility] on 04/19/24 for aphasia and right sided weakness. Nu presents to the ED with aphasia and right-sided weakness x 2 days. Friend at the bedside reports that she has been struggling to speak clearly for 2 days, then noticed her orientation and hand eye coordination were intermittently delayed. He reported she showed signs of panic attack and crying when she realized her own difficulties. Overall, CT scans negative for acute findings, except mild to moderate narrowing of the post bulbar proximal left ICA caused by soft plaque. MRI brain revealed 1.4 cm acute infarction left aspect of the dana. Dr Sanchez was consulted and stressed the importance that she refrain from driving and receives physical therapy to regain her abilities. They are driving through the area and will not be able to stay for continued therapy but will see her doctor in [place] in a few weeks when she returns. She was encouraged to see Dr. Sanchez in one week to continue management. She smokes daily with tox screening positive for amphetamines. Education provided to refrain from smoking and illicit drug use as this increased the risk for stroke. Nu cannot safely drive for 6-8 weeks and will need to be cleared by the neurologist to return driving privileges. She reports understanding as this was communicated three times when visiting her hospital room. Her boyfriend expressed understanding and reports he will do all the driving until she is cleared to drive again. She remained cognitively clear to ambulate independently and regained some confident speech if speaking slowly. Speech and physical therapy assessed and recommended continued therapy, cognitive test passed with 28/30 on MMSE. On 04/21/24, Nu was seen on morning rounds and deemed medically stable for discharge home with her boyfriend's support. Nu was discharged with instructions to schedule follow-up appointments with PCP and Dr. Sanchez. Nu was provided prescriptions for aspirin, plavix, folic acid, norvasc, and ator vastatin. Physical Exam General: AAO x3, NAD HEENT: Atraumatic, Normocephalic, MMM Neck: Supple, 2+ carotid pulse no bruit Respiratory: Normal air movement, Expiratory wheezing, on RA Cardiovascular: No edema, NSR, Normal S1 S2 Capillary refill: <2 Seconds Gastrointestinal: Normal bowel sounds, Soft on palpation, No tenderness Musculoskeletal: No clubbing Integumentary: No rashes Neurological: Normal tone, Abnormal speech (aphasia) Vital Signs/Physical Exam: Temp Pulse Resp BP Pulse Ox 97.7 F 62 15 180/89 H 96 04/21/24 08:00 04/21/24 08:00 04/21/24 08:00 04/21/24 08:00 04/21/24 08:00 Laboratory Data at Discharge: WBC 8.90 thou/uL (4.3-10.9) 04/21/24 06:14 Hgb 14.4 g/dL (12.0-15.0) 04/21/24 06:14 Hct 43.8 % (36.0-45.0) 04/21/24 06:14 Plt Count 293 thou/uL (152-406) 04/21/24 06:14 PT 12.0 SECONDS (9.4-12.5) 04/19/24 14:23 INR 1.07 04/19/24 14:23 Sodium 139 mEq/L (136-145) 04/21/24 06:14 Potassium 4.2 mEq/L (3.5-5.1) 04/21/24 06:14 BUN 16 mg/dL (7-18) 04/21/24 06:14 Creatinine 0.66 mg/dL (0.55-1.02) 04/21/24 06:14 Glucose 111 mg/dL (74-106) H 04/21/24 06:14 Phosphorus 3.6 mg/dL (2.5-4.9) 04/21/24 06:14 Magnesium 2.0 mg/dL (1.6-2.4) 04/21/24 06:14 Total Bilirubin 0.7 mg/dL (0.2-1.0) 04/19/24 15:17 AST < 10 U/L (15-37) L 04/19/24 15:17 ALT 20 U/L (13-56) 04/19/24 15:17 Alkaline Phosphatase 80 U/L (45-117) 04/19/24 15:17 Triglycerides 139 mg/dL (<150) 04/19/24 18:51 Cholesterol 187 mg/dL (<200) 04/19/24 18:51 HDL Cholesterol 41 mg/dL (40-60) 04/19/24 18:51 Cholesterol/HDL Ratio 4.56 04/19/24 18:51 Home Medications: Amlodipine [Norvasc*] 5 mg PO DAILY #30 tab 04/20/24 Aspirin [Aspirin EC 81 MG] 81 mg PO DAILY #30 tab 04/20/24 Atorvastatin Calcium [Lipitor] 40 mg PO BEDTIME #30 tab 04/20/24 Clopidogrel Bisulfate [Plavix*] 75 mg PO DAILY #30 tab 04/20/24 Folic Acid 1 mg PO DAILY #30 tab 04/20/24 New Medications: Aspirin [Aspirin EC 81 MG] 81 mg PO DAILY #30 tab Folic Acid 1 mg PO DAILY #30 tab Atorvastatin Calcium [Lipitor] 40 mg PO BEDTIME #30 tab Amlodipine [Norvasc*] 5 mg PO DAILY #30 tab Clopidogrel Bisulfate [Plavix*] 75 mg PO DAILY #30 tab Physician Discharge Instructions: MRI brain reports 1.4 cm acute infarction left aspect of the dana You will need to continue with physical therapy and speech therapy to allow your brain to heal/recover. Please follow up with Dr. Sanchez concerning continued monitoring and management of your risk factors. Please refrain from smoking as this restriction the vascular system causing an increase in strokes. Please refrain from illicit drug use as this will increase our stroke risk and brain healing. Nu cannot safely drive for 6-8 weeks and will need to be cleared by the neurologist to return driving privileges. 1. Please call and schedule a follow-up appointment with your PCP in 3-5 days - Please follow-up with your PCP for medication refills/adjustments 2. Please call and schedule a follow-up appointment with Dr. Sanchez in 3-5 days 3. Continue hear healthy, low sodium diet 4. activity restrictions Fall precautions, will need physical therapy and speech therapy to continue to heal 5. Return to the ED if symptoms worsen New medications Norvasc 5 mg daily plavix 75 mg daily aspirin 81 mg daily folic acid 1 mg daily Atorvastatin 40 mg Daily Diet: AHA Activity: Fall precautions Followup: Kit Sanchez MD [ASSOCIATE-ACTIVE - CAN ADMIT] - 1-2 Weeks NONE,NONE [Primary Care Provider] -
[2024-04-21 13:06] VITALS: BP 201/93; TEMP 96.9
[2024-04-22 15:52] LABS: Abnormal Protein Band 1 REPORT; Albumin, (SPE) 3.8 g/dL (3.8-4.8); Alpha-1-Globulins 0.3 g/dL (0.2-0.3); Alpha-2-Globulins 0.8 g/dL (0.5-0.9); Beta 1 Globulin 0.5 g/dL (0.4-0.6); Gamma Globulins 0.8 g/dL (0.8-1.7); INTERPRETATION REPORT; Total Protein 6.6 g/dL (6.1-8.1)
[2024-04-22 20:51] LABS: Homocysteine 10.8 umol/L (<10.4)
[2024-04-22 21:05] LABS: C-ANCA Anti-Proteinase 3 <1.0 AI (<1.0); P-ANCA Anti-Myeloperoxidase Ab <1.0 AI (<1.0)
[2024-04-23 00:21] LABS: Anti-Cardiolipin IgG Antibody <2.0 GPL-U/mL (<20.0); Anti-Cardiolipin IgM Antibody <2.0 MPL-U/mL (<20.0); Beta-2-Glycoprotein I IgA <2.0 U/mL (<20.0); Beta-2-Glycoprotein I IgG <2.0 U/mL (<20.0); Beta-2-Glycoprotein I IgM <2.0 U/mL (<20.0); Phosphatidylser & Prothrom IgG <9 U (<=30); Phosphatidylser & Prothrom IgM <9 U (<=30)
[2024-04-23 03:48] LABS: Anti-Thrombin III Activity 109 % normal (80-135)
[2024-04-23 14:30] LABS: Protein C Antigen 105 % normal (70-140)
[2024-04-28 11:52] LABS: PGA INTERPRETATION REPORT; Prothrombin Gene Analysis Test NEGATIVE
[2024-04-28 12:13] LABS: Factor V (Leiden) Interp REPORT; Factor V (Leiden) Result NEGATIVE
== END 2024-04-21 13:28 | disposition home or self-care (01) | DRG 65 ==
LOC: ER 13:56 → ERHOLD 16:27 → 2ND 20:10 → OBSVTOIN 04-20 17:56
PROVIDERS: ADMIT Internal Medicine; ATTEND Hospitalist
DX: I63.9 Cerebral infarction, unspecified (principal); G81.91 Hemiplegia, unspecified affecting right dominant side; I10 Essential (primary) hypertension; I65.22 Occlusion and stenosis of left carotid artery; J44.9 Chronic obstructive pulmonary disease, unspecified; I25.10 Atherosclerotic heart disease of native coronary artery without angina pectoris; R47.81 Slurred speech; R47.01 Aphasia; R47.02 Dysphasia; R29.701 NIHSS score 1; F17.210 Nicotine dependence, cigarettes, uncomplicated; Z71.6 Tobacco abuse counseling; Z95.5 Presence of coronary angioplasty implant and graft
CPT/HCPCS: 36415; 70450; 70496; 70498; 70551; 71045; 80048; 80061; 80076; 80307; 81003; 81240; 81241; 82306; 82565; 82607; 83036; 83090; 83735; 83880; 84100; 84165; 84436; 84443; 84484; 85025; 85300; 85302; 85305; 85306; 85379; 85610; 86021; 86592; 86593; 92523; 93306; 94640; 97110; 97112; 97116; 97129; 97161; 99285; G0378; J1650; J7030; J7613; J7644; Q9967